=== PATIENT | male | born 1950 | race Caucasian/White ===

== ENCOUNTER 2017-01-30 11:23 | Day surgery (SDC) | payer BC ==
--- NOTE | ~2017-01-30 | EGD ---
EGD REPORT [facility] [address] [place] [address] NAME: GREGORIO GERBER : [birth year] STATUS : REG [facility]#: [id number] AGE: 66 ADM/REG DATE : 01/30/17 MR#: [id number] REPORT SERV DATE: 01/30/17 DICTATED BY: SUMA HUSAIN DATE: 01/30/17 REPORT STATUS : Draft [facility]ANSCRIBED BY: [facility] DATE: 01/30/17 End[facility] Center Patient Name: Gregorio Gerber Date of : 1950 Attending MD: SUMA HUSAIN MD Procedure Date No Time: 01/30/2017 Procedure: Colonoscopy Indications: Screening for colorectal malignant neoplasm Referring MD: Jason Khanna Medicines: Monitored Anesthesia Care Complications: No immediate complications. Procedure: Pre-Anesthesia Assessment: - ASA Grade Assessment: II - A patient with mild systemic disease. After I obtained informed consent, the scope was passed under direct vision. Throughout the procedure, the patient's blood pressure, pulse, and oxygen saturations were monitored continuously. The CF [id number] was introduced through the anus and advanced to the cecum, identified by appendiceal orifice and ileocecal valve. The colonoscopy was performed without difficulty. The patient tolerated the procedure well. The quality of the bowel preparation was adequate. Findings: The digital rectal exam was normal. Pertinent negatives include no palpable rectal lesions. Two pedunculated polyps were found in the transverse colon. The polyps were 11 to 12 mm in size. These polyps were removed with a hot snare. Resection and retrieval were complete. A sessile polyp was found in the transverse colon. The polyp was 7 mm in size. The polyp was removed with a jumbo cold forceps. Resection and retrieval were complete. A sessile polyp was found in the sigmoid colon. The polyp was 5 mm in size. The polyp was removed with a jumbo cold forceps. Resection and retrieval were complete. A pedunculated polyp was found in the rectum. The polyp was 17 mm in size. The polyp was removed with a piecemeal technique using a hot snare. Resection and retrieval were complete. Hemorrhoids were found during retroflexion and were mild. A few small-mouthed diverticula were found in the sigmoid colon. Impression: - Two 11 to 12 mm polyps in the transverse colon. Resected and retrieved. - One 7 mm polyp in the transverse colon. Resected and EGD REPORT [address] [place]. [address] NAME: GREGORIO GERBER : 52 STATUS : REG [facility] PAT#: [id number] AGE: 66 ADM/REG DATE : 01/30/17 MR#: [id number] REPORT SERV DATE: 01/30/17 DICTATED BY: SUMA HUSAIN DATE: 01/30/17 REPORT STATUS : Draft TRANSCRIBED BY: [employer] DATE: 01/30/17 retrieved. - One 5 mm polyp in the sigmoid colon. Resected and retrieved. - One 17 mm polyp in the rectum. Resected and retrieved. - Hemorrhoids. Recommendation: - Patient has a contact number available for emergencies. The signs and symptoms of potential delayed complications were discussed with the patient. Return to normal activities tomorrow. Written discharge instructions were provided to the patient. - Regular diet. - Continue present medications. - Repeat colonoscopy for surveillance based on pathology results. - Return to GI clinic PRN. Procedure Code(s): --- Professional --- 50207, Colonoscopy, flexible, proximal to splenic flexure; with removal of tumor(s), polyp(s), or other lesion(s) by snare technique 72470, 59, Colonoscopy, flexible, proximal to splenic flexure; with biopsy, single or multiple Diagnosis Code(s): --- Professional --- K62.1, Rectal polyp D12.5, Benign neoplasm of sigmoid colon D12.3, Benign neoplasm of transverse colon K64.9, Unspecified hemorrhoids Z12.11, Encounter for screening for malignant neoplasm of colon CPT copyright 2013 [employer]. All rights reserved. The codes documented in this report are preliminary and upon railway switch operator review may be revised to meet current compliance requirements. SUMA HUSAIN MD 01/30/2017 2:43 PM This report has been signed electronically. Number of Addenda: 0 Note Initiated On: 01/30/2017 2:05 PM Scope Withdrawal Time 0 hours 26 minutes 22 seconds EGD REPORT [facility] [address] [place] [address] NAME: GREGORIO GERBER : [birth year] STATUS : REG [facility] PAT#: [id number] AGE: 66 ADM/REG DATE : 01/30/17 MR#: [id number] REPORT SERV DATE: 01/30/17 DICTATED BY: SUMA HUSAIN DATE: 01/30/17 REPORT STATUS : Draft TRANSCRIBED BY: [employer] DATE: 01/30/17 [address] [place] [id number]
[~2017-01-30 11:23] MED LIST: ALEVE220 MG PO; CELLCEPT5 PO; DAPSONE25 MG PO; LEXAPRO5 MG PO; METHOC750B PO; OXYCOD PO; ZOFRAN8 PO
== END 2017-01-30 23:59 | disposition home or self-care (01) ==
LOC: DMU 11:23
PROVIDERS: Internal Medicine Gastroenterology
PROC: 0DBN8ZX Excision of Sigmoid Colon, Via Natural or Artificial Opening Endoscopic, Diagnostic (ICD-10-PCS; 2017-01-30)
PROC: 0DBP8ZX Excision of Rectum, Via Natural or Artificial Opening Endoscopic, Diagnostic (ICD-10-PCS; 2017-01-30)
PROC: 0DBL8ZX Excision of Transverse Colon, Via Natural or Artificial Opening Endoscopic, Diagnostic (ICD-10-PCS; principal; 2017-01-30 13:00)
DX: Z12.11 Encounter for screening for malignant neoplasm of colon (principal); D12.3 Benign neoplasm of transverse colon; D12.5 Benign neoplasm of sigmoid colon; D12.8 Benign neoplasm of rectum; K64.9 Unspecified hemorrhoids; Z79.899 Other long term (current) drug therapy; Z98.890 Other specified postprocedural states
CPT/HCPCS: 88305